=== PATIENT | female | born 1930 | race Caucasian/White ===

== ENCOUNTER 2016-12-25 12:09 | Emergency (ER) | payer MEDICARE ==
--- OUTSIDE RECORDS SUMMARY | 2016-12-25 12:12 | XMS | Clinical Summary ---
:1930 Author Organization [facility] Address [address] [place] [address] Phone Care Team Providers Name Role Phone , Primary Care Provider Unavailable Allergies Not on File Current Medications Not on file Active Problems Not on file Social History Tobacco Use Types Packs/Day Years Used Date Never Assessed Sex Assigned at Date Recorded Not on file Last Filed Vital Signs Not on file Plan of Treatment Not on file Results Not on filefrom Last 3 Months
[2016-12-25] MEDS ORDERED: Acetaminophen 325 MG TAB ONE (14:25)
--- NOTE | 2016-12-25 14:34 | CT ---
CT OF HEAD NONCONTRAST: Date: 12/25/16 INDICATION: Headache. FINDINGS: There is normal size of ventricular system for patient's age. Mild chronic microvascular ischemic di sease is present. Evidence of prior right suboccipital craniectomy. There is no acute intracranial h emorrhage or mass effect. A mild degree of encephalomalacia involves the lateral aspect of the right cerebellar hemisphere. There is marked increased volume and heterogeneity of the high posterior par ietal scalp indicating hematoma. No adjacent/underlying calvarial fracture or evidence of pneumoceph alus. IMPRESSION: 1. No acute intracranial hemorrhage or mass effect 2. Mild chronic microvascular ischemic disease. 3. 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 4. Prominent sized scalp hematoma at the posterior vertex. POS: [facility]
== END 2016-12-25 14:30 | disposition home or self-care (01) ==
LOC: SCSER 12:09
DX: S00.03XA Contusion of scalp, initial encounter (principal); I10 Essential (primary) hypertension; Z79.01 Long term (current) use of anticoagulants; Z79.82 Long term (current) use of aspirin; W17.89XA Other fall from one level to another, initial encounter; Y92.481 Parking lot as the place of occurrence of the external cause
CPT/HCPCS: 70450

== ENCOUNTER 2017-03-19 05:17 | Emergency (ER) | payer MEDICARE ==
[2017-03-19 06:29] LABS: #Eosinphils 0.1 thou/uL (0.0-0.7); #Lymphocytes 1.5 thou/uL (1.20-3.40); #Monocytes 0.9 thou/uL (0.11-0.59); #Neutrophils 7.2 thou/uL (1.40-6.50); %Basophils 0.2 % (0.0-1.0); %Eosinophils 0.8 % (0.0-10.0); %Lymphocytes 15.7 % (21.0-51.0); %Monocytes 8.8 % (0.0-10.0); %Neutrophils 74.5 % (42.0-75.0); Hemoglobin 13.2 g/dL (12.0-16.0); Mean Corpuscular HGB CONC 31.6 g/dL (32.0-36.0); Mean Corpuscular Hemoglobin 31.2 pg (27.0-31.0); Mean Corpuscular Volume 98.8 fl (81.0-99.0); Mean Platelet Volume 7.3 fL (7.4-10.4); Platelet Count 181 thou/uL (130-400); Red Blood Cell (RBC) Count 4.23 mill/uL (4.20-5.40); White Blood Cell (WBC) Count 9.7 thou/uL (4.8-10.8)
[2017-03-19 06:43] LABS: ALT (SGPT) 12 U/L (8-55); AST (SGOT) 12 U/L (5-34); Albumin 3.9 g/dL (3.4-4.8); Alkaline Phosphatase 81 U/L (40-150); Anion Gap 13 mmol/L (10-20); BUN (Urea Nitrogen) 24 mg/dL (9.8-20.1); Bilirubin, Total 0.4 mg/dL (0.2-1.2); Calc. Creatinine Clearance 0 mL/min (70-130); Calcium 10.2 mg/dL (7.8-10.44); Carbon Dioxide 25 mmol/L (23-31); Chloride 109 mmol/L (98-107); Estimated GFR-MDRD 51; Globulin 2.4 g/dL (2.4-3.5); Glucose 128 mg/dL (83-110); Potassium 3.9 mmol/L (3.5-5.1); Protein, Total 6.3 g/dL (6.0-8.3); Sodium 143 mmol/L (136-145)
--- NOTE | 2017-03-19 07:53 | RAD ---
FOUR VIEWS OF THE LEFT FORELEG: INDICATIONS: Left leg pain. COMPARISON: None. FINDINGS: There is advanced osteoarthrosis of the left knee. No acute fracture or subluxation is seen involvin g the left foreleg. There are vascular calcifications within the peripheral soft tissues. IMPRESSION: No acute osseous abnormality. POS: [facility]
--- NOTE | 2017-03-19 08:19 | RAD ---
AP PELVIS: HISTORY: Pelvic pain. FINDINGS: No fracture, dislocation, or bony destruction is seen. Calcified uterine fibroids are present. POS: [facility]
--- NOTE | 2017-03-19 08:24 | RAD ---
LEFT HIP TWO VIEWS: History: Left hip pain. FINDINGS: There is mild osteophytosis and subchondral sclerosis. Femoral head contour is maintained. No acute f racture or dislocation are evident. Dystrophic calcification projecting over the pelvis has the appea santos of uterine fibroids. IMPRESSION: Mild osteoarthritic changes left hip. POS: [facility]
--- NOTE | 2017-03-19 08:26 | RAD ---
LEFT KNEE ONE VIEW: History: Fall. Knee pain. FINDINGS: Single merchant view of the left knee shows joint space narrowing and subchondral sclerosis. Osteophy tosis is also present. No fractures are evident. Soft tissue swelling overlies the prepatellar soft t issues. IMPRESSION: Osteoarthritis. Soft tissue swelling. POS: [facility]
== END 2017-03-19 09:19 | disposition home or self-care (01) ==
LOC: ERS 05:17
DX: M17.12 Unilateral primary osteoarthritis, left knee (principal); I10 Essential (primary) hypertension; E03.9 Hypothyroidism, unspecified; Z79.899 Other long term (current) drug therapy; W06.XXXA Fall from bed, initial encounter
CPT/HCPCS: 36415; 72170; 80053; 85025